=== PATIENT | female | born 1985 | race Two or more races ===

== ENCOUNTER 2024-06-04 13:46 | Inpatient (IN) | payer OTHER ==
[~2024-06-04] VITALS: Ht 170.2 cm; Wt 139.7 kg
[2024-06-04] MEDS ORDERED: IRO-PLEX LIQUI120 ML PO (14:25)
[2024-06-04] MEDS ORDERED: LEVO-T50 MCG PO (14:25)
[2024-06-04] MEDS ORDERED: RINGERS SOLUTION,LACTATED 1,000 ML IV STA (15:11)
[2024-06-04 15:46] LABS: MEAN CORPUSCULAR HGB CONC 28.8 g/dl (32.0-36.0); PLATELET COUNT 301 K/uL (150-450); RED BLOOD COUNT 2.75 M/uL (4.00-6.00); RED CELL DISTRIBUTION WIDTH 21.5 % (11.5-14.5)
[2024-06-04 15:47] LABS: MEAN CORPUSCULAR HEMOGLOBIN 17.8 pg (27.00-32.0)
[2024-06-04 15:48] LABS: MEAN CELL VOLUME 62.3 fL (80.00-100.00)
[2024-06-04 15:49] LABS: HEMATOCRIT 17.1 % (36.0-45.00); HEMOGLOBIN 4.9 g/dL (12.0-15.00)
[2024-06-04 16:07] LABS: INR 1.11; PARTIAL THROMBOPLASTIN TIME 25.9 SECONDS (22.0-34.0)
[2024-06-04 16:12] LABS: CALCIUM 8.7 mg/dL (8.5-10.1); CREATININE SERUM 0.69 mg/dL (0.55-1.02); GFR 94.23; POTASSIUM 3.55 mEq/L (3.5-5.1)
[2024-06-04 16:23] LABS: URINE APPEARANCE Clear; URINE BILIRRUBIN Negative (NEGATIVE); URINE BLOOD Negative; URINE COLOR Yellow; URINE GLUCOSE Negative (NEGATIVE); URINE KETONE Negative (NEGATIVE); URINE LEUKOCYTE Negative; URINE NITRATE Negative; URINE PROTEIN Negative (NEGATIVE)
[2024-06-04 16:27] LABS: URINE EPITHELIAL CELLS 2.6 uL (0.0-38.8); URINE RBC 2.4 uL (0.0-20.8); URINE WBC 3.2 uL (0.0-23.2)
[2024-06-04] MEDS ORDERED: 0.9 % SODIUM CHLORIDE 1,000 ML IV SCH (19:15)
[2024-06-05 02:52] VITALS: BP 119/53
[2024-06-05] MEDS ORDERED: LEVOTHYROXINE SODIUM 50 MCG TABLET PO SCH (06:00)
[2024-06-05 08:46] VITALS: BP 137/65
[2024-06-05] MEDS ORDERED: IRON FUM,PS/FOLIC/BCOMP,C NO.9 1 CAP CAPSULE PO SCH (09:00)
[2024-06-05] MEDS ORDERED: PANTOPRAZOLE SODIUM 40 MG/VIAL VIAL IV SCH (09:00)
[2024-06-05] MEDS ORDERED: MEGESTROL ACETATE 40 MG TABLET PO SCH ×2 (09:00→12:14)
[2024-06-05 19:13] VITALS: BP 128/75; O2SAT 98
[2024-06-05 20:43] LABS: ob NEGATIVE (NEGATIVE)
[2024-06-06 01:50] VITALS: BP 126/79; O2SAT 98
[2024-06-06 06:45] LABS: HEMATOCRIT 23.7 % (36.0-45.00); MEAN CORPUSCULAR HGB CONC 30.9 g/dl (32.0-36.0); PLATELET COUNT 269 K/uL (150-450); RED BLOOD COUNT 3.47 M/uL (4.00-6.00)
[2024-06-06 07:26] LABS: ALBUMIN 3.3 gm/dL (3.4-5.0); BILIRUBIN TOTAL 0.84 mg/dL (0.3-1.2); CALCIUM 8.9 mg/dL (8.5-10.1); CREATININE SERUM 0.61 mg/dL (0.55-1.02); GFR 108.63; GLOBULINA 3.7 G/DL (2.4-3.5); POTASSIUM 4.1 mEq/L (3.5-5.1)
[2024-06-06 07:52] LABS: HEMOGLOBIN 7.3 g/dL (12.0-15.00); MEAN CELL VOLUME 68.2 fL (80.00-100.00); RED CELL DISTRIBUTION WIDTH 26.6 % (11.5-14.5)
[2024-06-06] MEDS ORDERED: SOD FERRIC GLUC COMPLX/SUCROSE 62.5 MG/5 ML AMPUL IV SCH (09:00)
[2024-06-06 09:41] VITALS: BP 145/87; O2SAT 99
[2024-06-06] MEDS ORDERED: ASCORBIC ACID 500 MG TABLET PO SCH (14:07)
[2024-06-06 18:32] VITALS: BP 128/80; O2SAT 98
[2024-06-07 02:16] VITALS: BP 108/66
[2024-06-07 09:24] VITALS: BP 109/59; O2SAT 96
[2024-06-07 12:44] LABS: HEMATOCRIT 28.4 % (36.0-45.00); MEAN CELL VOLUME 71.1 fL (80.00-100.00); MEAN CORPUSCULAR HGB CONC 31.1 g/dl (32.0-36.0); PLATELET COUNT 254 K/uL (150-450)
[2024-06-07 12:46] LABS: HEMOGLOBIN 8.9 g/dL (12.0-15.00); MEAN CORPUSCULAR HEMOGLOBIN 22.2 pg (27.00-32.0); RED CELL DISTRIBUTION WIDTH 28.5 % (11.5-14.5)
[2024-06-07 17:59] VITALS: BP 130/77; O2SAT 100
[2024-06-08 00:15] VITALS: BP 149/70
[2024-06-08 03:48] LABS: HEMATOCRIT 31.7 % (36.0-45.00); HEMOGLOBIN 9.7 g/dL (12.0-15.00); MEAN CELL VOLUME 73.9 fL (80.00-100.00); MEAN CORPUSCULAR HEMOGLOBIN 22.5 pg (27.00-32.0); MEAN CORPUSCULAR HGB CONC 30.4 g/dl (32.0-36.0); PLATELET COUNT 291 K/uL (150-450)
[2024-06-08 03:50] LABS: RED CELL DISTRIBUTION WIDTH 29.5 % (11.5-14.5)
== END 2024-06-08 12:37 | disposition home or self-care (01) | DRG 812 ==
LOC: ER 13:48 → MEDJ 19:32 → MEDI 19:32 → MEDJ 06-05 12:36
PROVIDERS: General Practice; Internal Medicine Hematology & Oncology; ADMIT Internal Medicine; ATTEND Internal Medicine
PROC: B246ZZZ Ultrasonography of Right and Left Heart (ICD-10-PCS; 2024-06-04)
PROC: 30233N1 Transfusion of Nonautologous Red Blood Cells into Peripheral Vein, Percutaneous Approach (ICD-10-PCS; principal; 2024-06-05)
DX: D50.8 Other iron deficiency anemias (principal); C54.1 Malignant neoplasm of endometrium; D64.89 Other specified anemias; R60.0 Localized edema; E03.9 Hypothyroidism, unspecified; R00.2 Palpitations